=== PATIENT | female | born 1985 | race African-American/Black ===

== ENCOUNTER → 2016-10-17 | Outpatient (CLI) | payer OTHER ==
[~2016-10-17] MED LIST: ACET-2267 PO; BUTA1CAP39 PO; CEFD300C3 PO; CYCL10TA9 PO; IBUP-1780 PO; Ibuprofen PO; PNV1TABL56 PO
--- NOTE | 2016-10-17 13:29 | Diagnostic Imaging Report ---
INDICATION: survey. FINDINGS: Breech positioning of a yuen viable intrauterine gestation is present with unremarkable anatomical survey. The amniotic fluid volume within normal limits. Heart rate 149 beats per minute. The placenta is posterior with no abruption or previa. There is no pathological finding revealed at the anatomical survey. IMPRESSION: Normal anatomical survey. Yuen gestation in breech position measuring 21 weeks 3 days reflecting normal interval growth from prior. Dictated by: Dictated on workstation # [id number]
== END ==
LOC: RAD 10:57
PROVIDERS: ATTEND Family Medicine
DX: Z36 Encounter for antenatal screening of mother (principal); Z3A.21 21 weeks gestation of pregnancy
CPT/HCPCS: 76805

== ENCOUNTER 2017-02-20 02:41 | Inpatient (IN) | payer MEDICAID, OTHER ==
[~2017-02-20] VITALS: Ht 160 cm; Wt 73.0 kg
[2017-02-20] VITALS (12 sets, daily range): BP systolic 112–147; BP diastolic 56–70
[2017-02-20] MEDS ORDERED: D5 LR IV SOLUTION 1,000 ML IV ONE (02:55)
[2017-02-20] MEDS ORDERED: BUTORPHANOL INJ 2 MG/ML (STADOL) VIAL ONE (03:01)
[2017-02-20] MEDS ORDERED: MEPIVACAINE (CARBOCAINE) 2% 50 ML VIAL ONE (03:11)
[2017-02-20] MEDS ORDERED: D5 LR IV SOLUTION 1,000 ML IV SCH (03:18)
[2017-02-20] MEDS ORDERED: BUTORPHANOL INJ 2 MG/ML (STADOL) VIAL IV ONE ×2 (03:45→05:30)
[2017-02-20] MEDS ORDERED: OXYTOCIN/NORMAL SALINE 500 ML IV SCH (03:52)
--- NOTE | 2017-02-20 03:52 | History & Physical-OB ---
OB - Chief Complaint & HPI Date/Time Date of Admission: Date of Admission: 02/20/2017 Time Seen by Provider: 03:20 Chief Complaint/History OB-Reason for Admission/Chief: Onset of Labor Expected Date of Delivery: Feb 26, 2017 Gestational Age in Weeks: 39 Gestational Age in Days: 1 Admission Nurse Assessment Rev: Yes History of Labs GBS negative Allergies and Home Medications Allergies Coded Allergies: No Known Drug Allergies (Unverified , 01/20/10) Home Medications Acetaminophen 500 Mg Tablet, 500 MG PO Q6H, (Reported) Butalb/Acetaminophen/Caffeine 1 Each Capsule, 1 EACH PO Q6H PRN for HEADACHE, # 14 Ref 0 Prescribed by: CRYSTAL ALONSO on 03/18/16 1505 Ibuprofen 800 Mg Tablet, 800 MG PO Q8H PRN for PAIN, (Reported) OB - History Hx of Present Care: Yes Ultrasounds: Normal mid trimester US Obstetrical Complications: None Medical Complications: None Obstetrical History Hx Termination: No Hx Multiple Gestation: No Hx Stillbirth: No Hx Complication: No Hx Induced Hypertens: No Hx Maternal Gestational Diabet: No Delivery History Hx Dystocia: No Hx Large For Gestational Age I: No Hx Small for Gestational Age I: Yes Hx Section: No Hx Vaginal Delivery Post C-Sec: No Hx Blood Disorders: No (anemia) Adverse Rxn to Tranfusion: No Patient Past Medical History no chronic medical problems Social History/Family History Recent Infectious Disease Expo: No Alcohol Use: Denies Use Recreational Drug Use: No Immunizations Hepatitis A: No Hepatitis B: No Tetanus Booster (TDap): Less than 5yrs Date of Influenza Vaccine: May 11, 2014 OB - Admission Exam Physical Exam Date Seen by Provider: Feb 20, 2017 Time Seen by Provider: 03:20 HEENT: Moist Membranes Heart: Rhythm Normal Lungs: Clear Abdomen: Gravid Extremities: Normal Cervical Dilatation: 7cm (on presentation) Effacement: 100% Station: -1 Membranes: Intact Short Term Variability: Present Skilled Nursing Variability: Average (6-25) Intensity: Moderate OB - Assessment/Plan/Diagnosis Assessment Assessment: active labor (at 39 weeks) Plan Plan: Other (labor managment) VIN DACOSTA MD Feb 20, 2017 03:52
--- NOTE | 2017-02-20 03:57 | OB Labor & Delivery Record ---
L&D History Date of Service Date of Service: Feb 20, 2017 History Expected Date of Delivery: Feb 26, 2017 Gestational Age in Weeks: 39 Complications Events: Routine care Operative Indications (Cesarea: N/A-Vaginal Delivery Intrapartal Events: None L&D Stage1 Stage One Onset of Labor - Date: Feb 20, 2017 Onset of Labor - Time: 01:00 Monitors and Tracing Monitor Mode: External Monitor Accelerations: Uniform Monitor Decelerations: None Station: -1 Geography Faculty Member Variability: Average (6-10) Short Term Variability: Present Presentation: Vertex Signs of Distress by FHT Signs of Distress no Rupture of Membranes Spontaneous Ruture of Membrane: No Amniotic Membrane Fluid Desc.: Clear L&D Stage2 Stage Two Stage II Date: Feb 20, 2017 Stage II Time: 03:25 Monitors and Tracing Monitor Mode: External Monitor Accelerations: Uniform Monitor Decelerations: None Geography Faculty Member Variability: Average (6-10) Short Term Variability: Present Position: Left Occiput Anterior Presentation: Vertex Signs of Distress by FHT Signs of Distress no Cord Descript/Complications Cord Vessel Description: 3 Vessels Delivery Type Delivery Method: Spontaneous Vaginal Anterior Shoulder: Left Episiotomy/Perineal Laceration Laceraction(s)/Extensions: No Condition of Delivery 1 minute Comment: 9 5 minute Comment: 9 Condition of Infant Condition of Infant: Living Exam: No Observed Abnormalities Resuscitation Resuscitation: N/A - Spontaneous Resp L&D Stage3 Stage Three Stage III Date: Feb 20, 2017 Stage III Time: 03:30 Pictocin Pitocin ml/hr: 125 Placenta Delivery Placenta Delivery: Manual Delivery Summary Summary 200cc Condition of Delivery Examined: Cervix Examined Post Hemorrhage: No VIN DACOSTA MD Feb 20, 2017 03:57
[2017-02-20] MEDS ORDERED: TETANUS,DIPTH,PERTUSS P/F (BOOSTRIX) 0.5 ML VIAL IM ONE (04:00)
[2017-02-20] MEDS ORDERED: WITCH HAZEL(TUCKS) 40 EA JAR TOP PRN (04:00)
[2017-02-20] MEDS ORDERED: MEASLES,MUMPS,RUBELLA 1 EA INJ SQ ONE (04:00)
[2017-02-20] MEDS ORDERED: BENZOCAINE/MENTHOL (DERMOPLAST) 56 ML CAN TP PRN (04:00)
[2017-02-20] MEDS ORDERED: PREN-142 PO (04:18)
[2017-02-20 04:45] LABS: BASOPHILS % (AUTO) 0 % (0-10); EOSINOPHILS % (AUTO) 0 % (0-10); LYMPHOCYTES # (AUTO) 1.3 X 10^3 (1.0-4.0); LYMPHOCYTES % (AUTO) 13 % (12-44); MEAN CORPUSCULAR HEMOGLOBIN 20 PG (25-34); MEAN CORPUSCULAR HGB CONC 31 G/DL (32-36); MEAN CORPUSCULAR VOLUME 63 FL (80-99); MONOCYTES # (AUTO) 0.5 X 10^3 (0.0-1.0); MONOCYTES % (AUTO) 5 % (0-12); NEUTROPHILS # (AUTO) 7.7 X 10^3 (1.8-7.8); NEUTROPHILS % (AUTO) 82 % (42-75); PLATELET COUNT 146 10^3/uL (130-400); RED CELL DISTRIBUTION WIDTH 16.2 % (10.0-14.5); WHITE BLOOD COUNT 9.4 10^3/uL (4.3-11.0)
[2017-02-20] MEDS: IBUPROFEN 600 MG (MOTRIN) TAB PO SCH ×4 (05:09→22:57)
[2017-02-20] MEDS ORDERED: CATHETER FLUSH 10 ML SYR IV SCH ×2 (06:00)
[2017-02-20] MEDS: PRENATAL VITAMIN 1 EA TAB PO SCH (07:56)
[2017-02-20] MEDS: HYDROcodone/APAP 5 MG/325 MG (LORTAB) TAB PO PRN ×2 (07:58→20:57)
[2017-02-20] MEDS ORDERED: DOCUSATE SODIUM 100 MG (COLACE) CAP PO ONE (22:55)
[2017-02-21] MEDS: IBUPROFEN 600 MG (MOTRIN) TAB PO SCH (05:23)
[2017-02-21 05:30] VITALS: BP 142/78
[2017-02-21 06:44] LABS: BASOPHILS % (AUTO) 1 % (0-10); EOSINOPHILS # (AUTO) 0.2 10^3/uL (0.0-0.3); EOSINOPHILS % (AUTO) 2 % (0-10); LYMPHOCYTES # (AUTO) 3.2 X 10^3 (1.0-4.0); LYMPHOCYTES % (AUTO) 41 % (12-44); MEAN CORPUSCULAR HEMOGLOBIN 19 PG (25-34); MEAN CORPUSCULAR HGB CONC 31 G/DL (32-36); MEAN CORPUSCULAR VOLUME 63 FL (80-99); MONOCYTES # (AUTO) 0.4 X 10^3 (0.0-1.0); MONOCYTES % (AUTO) 6 % (0-12); NEUTROPHILS % (AUTO) 51 % (42-75); PLATELET COUNT 145 10^3/uL (130-400); RED BLOOD COUNT 3.61 10^6/uL (4.35-5.85); RED CELL DISTRIBUTION WIDTH 16.3 % (10.0-14.5); WHITE BLOOD COUNT 7.9 10^3/uL (4.3-11.0)
--- NOTE | 2017-02-21 07:48 | Discharge Summary ---
Diagnosis/Chief Complaint Date of Admission Feb 20, 2017 at 03:01 Date of Discharge February 21, 2017 Admission Diagnosis Admission Diagnosis 1. Intrauterine at term 39 weeks 2. Anemia due to iron deficiency Discharge Diagnosis 1. Intrauterine at term 39 weeks 2. Anemia due to iron deficiency Chief Complaint/HPI Chief Complaint/HPI 31-year-old 5 now term 5 female who initially presented in labor during the oracle adf developer of February 20, 2017. Upon presentation she was noted to be 7 cm dilated with a bulging membrane. Her EDC was listed as February 26, 2017. care was obtained through [facility] and was essentially unremarkable. Discharge Summary-OBS Procedures 1. Spontaneous vaginal delivery Discharge Physical Examination Allergies: Coded Allergies: No Known Drug Allergies (Unverified , 01/20/10) Vitals & I&Os Vital Sign - Last 12Hours Date Time Temp Pulse Resp B/P (MAP) Pulse Ox O2 Delivery O2 Flow Rate FiO2 02/21/17 05:30 97.6 53 18 142/78 Room Air 02/20/17 23:00 General Appearance: No Acute Distress HEENT: Mucous Memb Moist/[place] Respiratory: Clear to Auscultation Cardiovascular: Regular Rate Abdominal: Soft (with uterus firm) Hospital Course patient delivered a term viable female during the oracle adf developer of February 21, 2017 spontaneous vaginal. Mother had no episiotomy and there were no perineal tears. received Apgars of 8 at 1 minute and 9 at 5 minutes. See labor and delivery summary for full details. Following delivery patient underwent routine care orders. She was noted to have no complications during the remainder of hospital stay. Patient was ambulatory and had developed no leg pain or shortness of breath. Her hemoglobin day after delivery was noted to be 7.0 and this was compared to the 8.1 upon presentation. Patient was asymptomatic with regards to any dizziness. She was instructed to take her vitamin as well as iron outpatient. She will follow up in 6 weeks at [facility]. Labs Laboratory Tests 02/21/17 06:28: White Blood Count 7.9, Red Blood Count 3.61L, Hemoglobin 7.0L, Hematocrit 23L, Mean Corpuscular Volume 63L, Mean Corpuscular Hemoglobin 19L, Mean Corpuscular Hemoglobin Concent 31L, Red Cell Distribution Width 16.3H, Platelet Count 145, Mean Platelet Volume , Neutrophils (%) (Auto) 51, Lymphocytes (%) (Auto) 41, Monocytes (%) (Auto) 6, Eosinophils (%) (Auto) 2, Basophils (%) (Auto) 1, Neutrophils # (Auto) 4.0, Lymphocytes # (Auto) 3.2, Monocytes # (Auto) 0.4, Eosinophils # (Auto) 0.2, Basophils # (Auto) 0.0 Discharge Instructions to patient/family Please see electonic discharge instructions given to patient. Discharge Medications Reviewed and agree with Discharge Medication list on patient's Discharge Instruction sheet Clinical Quality Measures DVT/VTE Risk/Contraindication: Risk Factor Score Per Nursin RFS Level Per Nursing on Admit: 1=Low/No VTE PPX VIN DACOSTA MD Feb 21, 2017 07:48
[2017-02-21] MEDS ORDERED: FERR325C PO (07:50)
[2017-02-21] MEDS ORDERED: IBUP-1773 PO (07:50)
--- NOTE | 2017-02-21 07:51 | Discharge Inst-Women's Service ---
Discharge Inst-Women's Serv Depart Medication/Instructions New, Converted or Re-Newed RX: RX on Chart Consults/Follow Up Additional Follow Up: Yes (with Dr Dacosta at [facility] in 6 weeks) Diet Discharge Diet: Regular Diet Return to The Hospital For: as below Symptoms to Report to : Bleeding Excessive, Fever Over 101 Degrees F, Vaginal Bleeding Increase, Vaginal Discharge Foul For Any Problems or Questions: Contact Your Physician VIN DACOSTA MD Feb 21, 2017 07:51
[2017-02-21] MEDS ORDERED: DOCUSATE SODIUM 100 MG (COLACE) CAP PO SCH (09:00)
[2017-02-21 09:30] VITALS: BP 126/56
[2017-02-21] MEDS: PRENATAL VITAMIN 1 EA TAB PO SCH (09:33)
== END 2017-02-21 11:20 | disposition home or self-care (01) | DRG 775 ==
LOC: LDRP 02:41 → WSo 02:41 → LDRP 03:01
PROVIDERS: ADMIT Family Medicine; ATTEND Family Medicine
PROC: 10E0XZZ Delivery of Products of Conception, External Approach (ICD-10-PCS; principal; 2017-02-20)
DX: O99.03 Anemia complicating the puerperium (principal); D50.9 Iron deficiency anemia, unspecified; Z3A.39 39 weeks gestation of pregnancy; Z37.0 Single live birth
CPT/HCPCS: 36415; 85025; 86850; 86900; 86901; 99212

== ENCOUNTER 2017-05-07 14:00 | Outpatient (CLI) | payer MEDICAID ==
[~2017-05-07] VITALS: Ht 160 cm; Wt 65.3 kg
[~2017-05-07 14:00] MED LIST changes: +FERR325C PO; +IBUP-1773 PO; +PREN-142 PO
[2017-05-07 14:10] VITALS: BP 126/46
[2017-05-07 14:44] LABS: BASOPHILS # (AUTO) 0.1 10^3/uL (0.0-0.1); BASOPHILS % (AUTO) 2 % (0-10); EOSINOPHILS # (AUTO) 0.1 10^3/uL (0.0-0.3); EOSINOPHILS % (AUTO) 2 % (0-10); LYMPHOCYTES # (AUTO) 2.5 X 10^3 (1.0-4.0); LYMPHOCYTES % (AUTO) 63 % (12-44); MEAN CORPUSCULAR HEMOGLOBIN 20 PG (25-34); MEAN CORPUSCULAR HGB CONC 32 G/DL (32-36); MEAN CORPUSCULAR VOLUME 63 FL (80-99); MONOCYTES # (AUTO) 0.3 X 10^3 (0.0-1.0); MONOCYTES % (AUTO) 6 % (0-12); NEUTROPHILS # (AUTO) 1.1 X 10^3 (1.8-7.8); NEUTROPHILS % (AUTO) 28 % (42-75); PLATELET COUNT 151 10^3/uL (130-400); RED BLOOD COUNT 6.03 10^6/uL (4.35-5.85); RED CELL DISTRIBUTION WIDTH 24.4 % (10.0-14.5); WHITE BLOOD COUNT 4.1 10^3/uL (4.3-11.0)
[2017-05-09] MEDS ORDERED: IBUP-1780 PO (13:56)
[2017-05-09] MEDS ORDERED: OXYC-202 PO (13:56)
[2017-05-09] MEDS ORDERED: DOCU-143 PO (13:56)
== END 2017-05-07 14:30 | disposition home or self-care (01) ==
LOC: PREOP 14:00
PROVIDERS: ATTEND Obstetrics & Gynecology
DX: Z01.812 Encounter for preprocedural laboratory examination (principal); D25.9 Leiomyoma of uterus, unspecified; N81.4 Uterovaginal prolapse, unspecified
CPT/HCPCS: 36415; 84443; 84703; 85025; 86850; 86900; 86901; 87081

== ENCOUNTER 2017-05-09 12:00 | Day surgery (SDC) | payer MEDICAID ==
[~2017-05-09] VITALS: Ht 160 cm; Wt 65.3 kg
[2017-05-09] MEDS ORDERED: BUP/EPI 0.5% 1:200,000 (MARCAINE) 10ML VIAL IJ ONE (12:32)
[2017-05-09 12:36] VITALS: BP 106/47
[2017-05-09] MEDS: LACTATED RINGERS 1,000 ML IV SCH ×2 (12:45→14:40)
[2017-05-09] MEDS ORDERED: ONDANSETRON 4 MG/2 ML (SDV) Z0FRAN ONE ×2 (13:15→18:03)
[2017-05-09] MEDS ORDERED: MIDAZOLAM 2 MG/2 ML (VERSED) VIAL ONE (13:15)
[2017-05-09] MEDS ORDERED: DEXAMETHASONE 10 MG/ML (DECADRON) 1 ML VIAL ONE (13:15)
[2017-05-09] MEDS ORDERED: SEVOFLURANE (ULTANE) 15 ML INHAL SOLN ONE ×6 (13:15→15:22)
[2017-05-09] MEDS ORDERED: proPOfol 200 MG/20 ML (DIPRIVAN) VIAL IV ONE (13:15)
[2017-05-09] MEDS ORDERED: LIDOCAINE PF 2% 5 ML (XYLOCAINE) VIAL ONE (13:15)
[2017-05-09] MEDS ORDERED: fentaNYL INJECTION 100 MCG/2 ML AMP ONE (13:15)
[2017-05-09] MEDS ORDERED: ROCURONIUM 50 MG/5 ML (ZEMURON) VIAL IV ONE (13:15)
[2017-05-09] MEDS ORDERED: ceFAZolin 1 GM/NS 50 ML IVPB IV ONE ×2 (13:15)
--- NOTE | 2017-05-09 13:52 | Progress Note-Pre Operative ---
Pre-Operative Progress Note H&P Reviewed The H&P was reviewed, patient examined and no changes noted. Date Seen by Provider: May 09, 2017 Time Seen by Provider: 13:51 Date H&P Reviewed: May 09, 2017 Time H&P Reviewed: 13:52 Pre-Operative Diagnosis: uterine fibroids menorrhagia and uterine prolapse CONCHIS OH MD May 09, 2017 1:52 pm
[2017-05-09] MEDS ORDERED: D5 LR IV SOLUTION 1,000 ML IV SCH (13:53)
--- NOTE | 2017-05-09 13:53 | Progress Note-Post Operative ---
Post-Operative Progess Note Surgeon (s)/Welder Production Line Arc (s) Surgeon CONCHIS OH MD Welder Production Line Arc: Radha Alvarez Pre-Operative Diagnosis uterine fibroids menorrhagia and uterine prolapse Post-Operative Diagnosis same Procedure & Operative Findings Date of Procedure 05/09/17 Procedure Performed/Findings total laparoscopic hysterectomy with bilateral salpingectomies Anesthesia Type GETA Estimated Blood Loss Estimated blood loss (mL): 50cc Specimens/Packing Specimens Removed uterus and fallopian tubes Packing: none CONCHIS OH MD May 09, 2017 13:52
[2017-05-09] MEDS ORDERED: IBUP-1780 PO (13:56)
[2017-05-09] MEDS ORDERED: DOCU-143 PO (13:56)
[2017-05-09] MEDS ORDERED: OXYC-202 PO (13:56)
--- NOTE | 2017-05-09 13:59 | Discharge Instructions ---
Discharge Instructions Discharge Medications New, Converted or Re-Newed RX: RX on Chart Patient Instructions Patient Instructions: as directed Return to The Hospital For: as directed Activity & Diet Discharge Diet: No Restrictions Activity as Tolerated: No Orders-Post D/C & Referrals Follow Up Appt: return to clinic on Friday, May 12, 2017 at 930 a.m. for staple removal Call to make follow up appt. for patient in 4 weeks. Activity: Rest for 24 hours, than as tolerated. Wound Care: May remove Band-Aid tomorrow. Replace as desired. Keep incisions clean and dry. Wash daily with soap and water. Please call in RX to patient pharmacy. Diet: As tolerated-Clear Liquids only if nauseated. May shower or tub bathe as desired. No driving for 24 hours, no alcoholic beverages for 24 hours, and nothing per vagina (no tampons, douching, or intercourse) for 8 weeks. Patient to return to the clinic as soon as possible for: Temperature greater than 101F, Severe Pain, Foul discharge from incision or vagina, Excessive Bleeding (more than a period). CONCHIS OH MD May 09, 2017 1:59 pm
[2017-05-09] MEDS ORDERED: ONDANSETRON 4 MG/2 ML (SDV) Z0FRAN IVP PRN ×3 (14:00→15:45)
[2017-05-09] MEDS ORDERED: fentaNYL INJECTION 100 MCG/2 ML AMP IVP PRN (14:00)
[2017-05-09] MEDS: morphine INJ 10 MG/ML 1ML (SYR OR VIAL) IVP PRN ×2 (14:48→15:53)
[2017-05-09] MEDS: KETOROLAC 30 MG/ML VIAL IVP SCH ×2 (14:50→15:50)
[2017-05-09] MEDS ORDERED: MEPERIDINE (DEMEROL) INJ 50 MG/ML ONE (14:56)
[2017-05-09] MEDS ORDERED: GLYCOPYRROLATE 0.2 MG/ML (ROBINUL) 2 ML VIAL ONE (15:12)
[2017-05-09] MEDS ORDERED: NEOSTIGMINE (BLOXIVERZ ) 1 MG/1ML 10 ML VIAL ONE (15:12)
[2017-05-09] MEDS: HYDROmorphone (DILAUDID) 2 MG/ML VIAL IVP PRN ×2 (16:05→16:15)
[2017-05-09 16:55] VITALS: BP 122/83
[2017-05-09] MEDS ORDERED: ESTROGENS CONJ IV 25 MG/5 ML (PREMARIN) VIAL IV ONE (17:31)
[2017-05-09] MEDS ORDERED: WATER (STERILE) FOR INJ 10 ML BTL INJ ONE (17:31)
[2017-05-09] MEDS: oxyCODONE/APAP 10/325MG (PERCOCET 10) TABLET PO PRN ×2 (17:53→21:34)
[2017-05-09 19:40] VITALS: BP 133/72
--- OUTSIDE RECORDS SUMMARY | 2017-05-09 21:09 | XMS REPORT ---
Author Author VIN DACOSTA Organization [facility] Address [address] [place] [address] Care Team Providers Care Motor And Controls Tester Name Role Phone VIN DACOSTA Unavailable PROBLEMS Type Condition ICD9-CM Code [id number] Code Onset Dates Condition Status SNOMED Code Problem Migraine with aura and without status migrainosus, not intractable G43.109 Active 0006845 ALLERGIES No Known Allergies SOCIAL HISTORY No smoking Hx information available PLAN OF CARE Activity Details Follow Up 4 Weeks Reason: VITAL SIGNS Height 63 in 2016-08-14 Weight 149.8 lbs 2016-08-14 Temperature 97.7 degrees Fahrenheit 2016-08-14 Heart Rate 80 bpm 2016-08-14 Respiratory Rate 20 2016-08-14 BMI 26.536 kg/m2 2016-08-14 Blood pressure systolic 133 mmHg 2016-08-14 Blood pressure diastolic 82 mmHg 2016-08-14 MEDICATIONS Medication Instructions Dosage Frequency Start Date End Date Duration Status Zofran ODT 4 MG Orally every 8 hrs 1 tablet on the tongue and allow to dissolve 8h Jul, 30 day(s) Active Advantage Active RESULTS Name Result Date Reference Range UA OB DIP (IN HOUSE) 2016-08-14 Glucose Negative Protein Trace PROCEDURES Procedure Date Ordered Related Diagnosis Body Site URINE-NO MICRO Aug 14, 2016 Office Visit, Est Pt., Level 3 Aug 14, 2016 IMMUNIZATIONS No Known Immunizations
--- OUTSIDE RECORDS SUMMARY | 2017-05-09 21:09 | XMS REPORT ---
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, implant, and graft 996.76 Active 549193245 Problem Screening for malignant neoplasm of the cervix V76.2 Active 897378369 Problem Other general counseling and advice for contraceptive management V25.09 Active 611350015 Assessment Encounter for test Z32.00 06 Jun, 2016 Active 239840857 Problem Headache 784.0 Active 96805640 Problem Need for prophylactic vaccination and inoculation, Influenza V04.81 Active 755908757 Problem DTAP TEST V06.1 Active Problem Trichomonal vulvovaginitis 131.01 Active 14041094 Problem Supervision of other normal V22.1 Active 529685778 Problem Unspecified contraceptive management V25.9 Active 232182102 Problem Encounter for removal of intrauterine contraceptive device V25.12 Active 93124563 ALLERGIES Unknown Allergies SOCIAL HISTORY No smoking Hx information available PLAN OF CARE VITAL SIGNS MEDICATIONS Unknown Medications RESULTS No Results PROCEDURES Procedure Date Ordered Related Diagnosis Body Site URINE TEST Jul 02, 2016 IMMUNIZATIONS No Known Immunizations
--- OUTSIDE RECORDS SUMMARY | 2017-05-09 21:09 | XMS REPORT ---
Author Author VIN DACOSTA Organization [facility] Address [address] [place] [address] Care Team Providers Care Crystal Report Developer Name Role Phone VIN DACOSTA Unavailable PROBLEMS Type Condition ICD9-CM Code [id number] Code Onset Dates Condition Status SNOMED Code Problem Migraine with aura and without status migrainosus, not intractable G43.109 Active 6914202 ALLERGIES No Known Allergies SOCIAL HISTORY Never Assessed PLAN OF CARE Activity Details Follow Up 4 Weeks Reason: VITAL SIGNS Height 63 in 2016-09-11 Weight 147.8 lbs 2016-09-11 Temperature 97.3 degrees Fahrenheit 2016-09-11 Heart Rate 82 bpm 2016-09-11 Respiratory Rate 18 2016-09-11 BMI 26.182 kg/m2 2016-09-11 Blood pressure systolic 122 mmHg 2016-09-11 Blood pressure diastolic 70 mmHg 2016-09-11 MEDICATIONS Medication Instructions Dosage Frequency Start Date End Date Duration Status Promethazine HCl 25 MG Orally every 8 hours, PRN 1 tablet as needed Aug, Sep, 30 day(s) Active Advantage Active RESULTS Name Result Date Reference Range UA OB DIP (IN HOUSE) 2016-09-11 Glucose negative Protein negative PROCEDURES Procedure Date Ordered Result Body Site URINE-NO MICRO Sep 11, 2016 IMMUNIZATIONS No Known Immunizations MEDICAL (GENERAL) HISTORY Type Description Date Medical History Chronic Headaches Surgical History tonsillectomy Hospitalization History Child x4
--- OUTSIDE RECORDS SUMMARY | 2017-05-09 21:09 | XMS REPORT ---
Author Author VIN DACOSTA [facility] Address [address] [place] [address] Care Team Providers Care Distributed Generation Project Manager Name Role Phone VIN DACOSTA Unavailable PROBLEMS Type Condition ICD9-CM Code [id number] Code Onset Dates Condition Status SNOMED Code Problem Migraine with aura and without status migrainosus, not intractable G43.109 Active 0694256 ALLERGIES Unknown Allergies SOCIAL HISTORY No smoking Hx information available PLAN OF CARE VITAL SIGNS MEDICATIONS Unknown Medications RESULTS No Results PROCEDURES No Known procedures IMMUNIZATIONS No Known Immunizations
--- OUTSIDE RECORDS SUMMARY | 2017-05-09 21:09 | XMS REPORT ---
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, implant, and graft 996.76 Active 389360151 Problem Screening for malignant neoplasm of the cervix V76.2 Active 041239286 Problem Other general counseling and advice for contraceptive management V25.09 Active 684386908 Assessment Intractable migraine without aura and without status migrainosus G43.019 Feb, Active 721521063 Assessment Encounter to establish care Z76.89 Feb, Active 910205785 Problem Headache 784.0 Active 65643281 Problem Need for prophylactic vaccination and inoculation, Influenza V04.81 Active 349763405 Problem DTAP TEST V06.1 Active Problem Trichomonal vulvovaginitis 131.01 Active 28001728 Problem Supervision of other normal V22.1 Active 971388430 Problem Unspecified contraceptive management V25.9 Active 296349742 Problem Encounter for removal of intrauterine contraceptive device V25.12 Active 66423765 ALLERGIES Substance Reaction Event Type Date Status N.K.D.A. Unknown Non Drug Allergy Feb, Unknown SOCIAL HISTORY No smoking Hx information available PLAN OF CARE VITAL SIGNS Height 63 in 2016-03-19 Weight 157.0 lbs 2016-03-19 Heart Rate 76 bpm 2016-03-19 Respiratory Rate 20 2016-03-19 BMI 27.81 kg/m2 2016-03-19 Blood pressure systolic 128 mmHg 2016-03-19 Blood pressure diastolic 76 mmHg 2016-03-19 MEDICATIONS Medication Instructions Dosage Frequency Start Date End Date Duration Status Fioricet 50-325-40 mg 1-2 tablet by Oral route every 6 hours PRN not to exceed 6 tablets/day, 10/week May, Active Toprol XL 50 mg Orally Once a day 1 tablet 24h Feb, Active Ibuprofen 800 MG Orally Three times a day 1 tablet 8h Active RESULTS No Results PROCEDURES Procedure Date Ordered Related Diagnosis Body Site Office Visit, Est Pt., Level 4 Mar 19, 2016 IMMUNIZATIONS No Known Immunizations
--- OUTSIDE RECORDS SUMMARY | 2017-05-09 21:09 | XMS REPORT ---
Author Author VIN DACOSTA Organization [facility] Address [address] [place] [address] Care Team Providers Care Vice President For Philanthropy Name Role Phone VIN DACOSTA Unavailable PROBLEMS Type Condition ICD9-CM Code [id number] Code Onset Dates Condition Status SNOMED Code Problem Migraine with aura and without status migrainosus, not intractable G43.109 Active 3955150 ALLERGIES Substance Reaction Event Type Date Status N.K.D.A. Unknown Non Drug Allergy Jun, Unknown SOCIAL HISTORY No smoking Hx information available PLAN OF CARE Activity Details Follow Up 4 Weeks Reason: VITAL SIGNS Height 63 in 2016-07-17 Weight 157 lbs 2016-07-17 Temperature 98.6 degrees Fahrenheit 2016-07-17 Heart Rate 80 bpm 2016-07-17 Respiratory Rate 20 2016-07-17 BMI 27.811 kg/m2 2016-07-17 Blood pressure systolic 120 mmHg 2016-07-17 Blood pressure diastolic 78 mmHg 2016-07-17 MEDICATIONS Medication Instructions Dosage Frequency Start Date End Date Duration Status Advantage Active RESULTS Name Result Date Reference Range TSH () 2016-07-17 TSH 0.443 0.450-4.500 PAP TEST, HPV IF ASCUS 2016-07-17 DIAGNOSIS: Specimen adequacy: Performed by: . . Pathologist provided ICD10: Note: . CBC 2016-07-17 WBC 6.3 3.4-10.8 RBC 5.28 3.77-5.28 Hemoglobin 10.8 11.1-15.9 Hematocrit 34.6 34.0-46.6 MCV 66 79-97 MCH 20.5 26.6-33.0 MCHC 31.2 31.5-35.7 RDW 19.1 12.3-15.4 Platelets 184 150-379 Neutrophils 50 Lymphs 39 Monocytes 9 Eos 1 Basos 1 Neutrophils (Absolute) 3.2 1.4-7.0 Lymphs (Absolute) 2.5 0.7-3.1 Monocytes(Absolute) 0.6 0.1-0.9 Eos (Absolute) 0.1 0.0-0.4 Baso (Absolute) 0.1 0.0-0.2 Immature Granulocytes 0 Immature Grans (Abs) 0.0 0.0-0.1 ANTIBODY SCREEN 2016-07-17 Antibody Screen Negative Negative BLOOD TYPE/RH FACTOR 2016-07-17 ABO Grouping B Rh Factor Positive RUBELLA ANTIBODIES, IgG 2016-07-17 Rubella Antibodies, IgG 4.00 Immune >0.99 CULTURE, GENITAL 2016-07-17 Genital Culture, Routine Final report Result 1 CULTURE, URINE 2016-07-17 Urine Culture, Routine Final report Result 1 No growth TRICHOMONAS (IN HOUSE) 2016-07-17 TRICHOMONAS Negative Control + Lot # [id number] Exp date UA LONG DIP (IN HOUSE) 2016-07-17 Lot # [id number] Exp date Clarity Clear Color Yellow Odor None GLU Negative FLORA Negative KET Negative SG 1.020 BLO Negative pH 7.0 Protein Negative URO 0.2 NIT Negative ALONDRA Negative Lot # Exp date PDF Report 2016-07-17 PDF Report1 LCLS BACTERIAL VAGINOSIS (IN HOUSE) 2016-07-17 RESULTS Positive Control + Lot # [id number] Exp date SYPHILIS (STATE) 2016-07-17 HIV (STATE) 2016-07-17 HEP B SURFACE ANTIGEN (STATE) 2016-07-17 HEP B ANTIBODY HEP B ANTIBODY ([facility]) HEP B ANTIBODY ([facility]) GC/CHLAM PROBE ([facility]) 2016-07-17 CHLAMYDIA GC Ultrasound : OB, Early <14 WEEKS 2016-07-25 PROCEDURES Procedure Date Ordered Related Diagnosis Body Site BLOOD TYPING, ABO Jul 17, 2016 BLOOD TYPING, RH (D) Jul 17, 2016 CULTURE, BACTERIA, OTHER Jul 17, 2016 COMPLETE CBC W/AUTO DIFF WBC Jul 17, 2016 No Charge Jul 17, 2016 URINE CULTURE/COLONY COUNT Jul 17, 2016 RUBELLA ANTIBODY Jul 17, 2016 OLIVIA VAG, DNA, DIR PROBE Jul 17, 2016 TRICHOMONAS ASSAY W/OPTIC Jul 17, 2016 RBC ANTIBODY SCREEN Jul 17, 2016 Office Visit, Est Pt., Level 4 Jul 17, 2016 URINALYSIS, AUTO, W/O SCOPE Jul 17, 2016 ASSAY THYROID STIM HORMONE Jul 17, 2016 VENIPUNCT, ROUTINE* Jul 17, 2016 IMMUNIZATIONS No Known Immunizations
--- OUTSIDE RECORDS SUMMARY | 2017-05-09 21:10 | XMS REPORT ---
Author Author CHRISTINA GERMAN Organization [employer] Address Unknown Phone Unavailable Care Team Providers Care Shake Table Operator Name Role Phone CHRISTINA GERMAN CP Unavailable Allergies, Adverse Reactions, Alerts Substance Reaction Event Type N.K.D.A. 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, implant, and graft 996.76 Active Assessment Other headache syndrome G44.89 Active Problem DTAP TEST V06.1 Active Problem Unspecified contraceptive management V25.9 Active Problem Need for prophylactic vaccination and inoculation, Influenza V04.81 Active Problem Supervision of other normal V22.1 Active Problem Screening for malignant neoplasm of the cervix V76.2 Active Problem Encounter for removal of intrauterine contraceptive device V25.12 Active Problem Trichomonal vulvovaginitis 131.01 Active Medications No Known Medications Procedures Procedure Coding System Code Date TORADOL (IM) 60 MG/2ML (UP TO 15 MG) CPT-4 J1885 Mar 18, 2016 THER/PROPH/DIAG INJ, SC/IM CPT-4 84453 Mar 18, 2016 Office Visit, Est Pt., Level 3 CPT-4 98129 Mar 18, 2016 Vital Signs Date/Time: Mar 18, 2016 Cardiac Monitoring Heart Rate 80 bpm Weight 159.0 lbs Height 63 in BMI 28.16 Index Blood Pressure Diastolic 72 mmHg Blood Pressure Systolic 126 mmHg Results No Known Results Summary Purpose [employer] Submission
--- OUTSIDE RECORDS SUMMARY | 2017-05-09 21:10 | XMS REPORT ---
Author Author RENAE CINTRON [facility] Address [address] [place] [address] Care Team Providers Care Sales Training Representative Name Role Phone RENAE CINTRON Unavailable PROBLEMS Type Condition ICD9-CM Code SIF24-EA Code Onset Dates Condition Status SNOMED Code Problem Migraine with aura and without status migrainosus, not intractable G43.109 Active 8589803 ALLERGIES No Information SOCIAL HISTORY Never Assessed PLAN OF CARE VITAL SIGNS MEDICATIONS Unknown Medications RESULTS No Results PROCEDURES No Known procedures IMMUNIZATIONS No Known Immunizations MEDICAL (GENERAL) HISTORY Type Description Date Medical History Chronic Headaches Surgical History tonsillectomy Hospitalization History Child x4
[2017-05-09] MEDS ORDERED: KETOROLAC 30 MG/ML VIAL IVP SCH (22:00)
--- NOTE | 2017-05-10 07:40 | OPERATIVE REPORT ---
DATE OF SERVICE: 05/09/2017 PREOPERATIVE DIAGNOSES: 1. Uteromegaly/fibroids. 2. Menorrhagia. 3. Uterine prolapse. POSTOPERATIVE DIAGNOSES: 1. Uteromegaly/fibroids. 2. Menorrhagia. 3. Uterine prolapse. 4. Endometriosis. OPERATIVE PROCEDURE: Total laparoscopic gastric hysterectomy with bilateral salpingectomy and with destruction of endometriosis. OPERATIVE DESCRIPTION: With the patient in the supine position under satisfactory general anesthesia, she was repositioned in the dorsal lithotomy position in the [facility] and prepped and draped in the usual fashion for abdominal and vaginal surgery. Seo catheter was placed in the urinary bladder. A weighted speculum placed in the posterior fornix of the vagina and cervix exposed and grasped anteriorly with single tooth tenaculum. Uterus sounded to 13.5 cm with uterine sound. The cervix was then serially dilated with Jewel dilators to accommodate a Nany II manipulator, which was placed with a 6 x 8 cm uterine probe and a 35 mm colpotomy ring. Sutures of #1 Vicryl were placed at 3 and 9 o'clock positions of the cervix to affix the cervix to the manipulator. The patient brought in low dorsal lithotomy position and a 12 mm incision made 4 cm superior to the umbilicus, 8 mm incisions were made lateral to the umbilicus 9 cm on each side. All the incision/port sites were infiltrated with 0.5% Marcaine with epinephrine prior to incision. Veress needle was placed through the midline upper incision. Correct placement confirmed with a water drop test. The abdomen was insufflated with 2.4 liters of carbon dioxide. The Veress needle was removed and a 12 mm laparoscopic port placed. The laparoscope was introduced. The abdominal wall was transilluminated an 8 mm ports were placed in the lateral incisions. The patient was placed in Trendelenburg allowing the bowel to split up out of the pelvis. The manipulator was positioned and using a vessel sealer on the right and a bipolar fenestrated grasper on the left, I retired to the console using then the instruments noted. The pelvis was first examined. Both fallopian tubes were normal in appearance as were the ovaries. There were numerous fibroids, the largest being on the anterior lower uterine segment of the uterus. There were endometriosis implants in both ovarian fossae. Both ovaries had a follicular cyst, but none appeared abnormal. Both ureters were seen along the route down into the uterine vessels and were freely peristalsing. The laparoscope was rotated. The appendix was identified, it was a normal vermiform appendix. The decision was made to go ahead with the planned surgery. The right fallopian tube was grasped and elevated using the vessel sealer with the mesosalpinx was clamped, cauterized, and divided over to the side of the uterus. The uteroovarian pedicle was treated in that manner as was the round ligament, broad ligament, and the cardinal ligament. The same procedure performed on the left, allowing for constipation and both ovaries with removal of both fallopian tube was eventually with the uterus. The anterior lower uterine segment was now exposed the vessel sealer was replaced with a monopolar shear. The peritoneum on the anterior lower uterine segment was divided. The bladder was carefully dissected down off the lower uterine segment down onto the vagina exposing the vaginal wall at its connection with the cervix. A colpotomy incision was started at 11 o'clock position onto the colpotomy ring. That incision was continued circumferentially clockwise and counterclockwise until the entire colpotomy ring was exposed. The uterus with the fallopian tubes still attached was extracted through the vagina. There was some bleeding on the vaginal cuff, couple spots were cauterized to stem the bleeding until the cuff to be closed. The cuff was then closed using three sutures of V-Loc [place] sutures starting first on the right angle and securing that pedicle with the uterine vessels and then suspending the ovary from the stump of the round ligament on the right side, the same was performed on the left. This supported both ovaries above the pelvis nicely and secured the uterine vessels and secured the angle of the vagina. A third suture was used to close the midportion of the vaginal cuff. The peritoneum was brought back down on to the vaginal cuff with each of those sutures as they were used. The pelvis was irrigated and examined for hemostasis, which was complete. The endometriosis implants in the pelvis and both ovarian fossae and then the cul-de-sac were touched with electrocautery to destroy them. The pelvis was irrigated a final time. Hemostasis was complete, no remaining pathology was noted. Both ureters were seemed to peristalse freely. The procedure at this point was terminated. The patient was brought out of Trendelenburg after first, removing the operative instruments and undocking the manipulator. The ports were removed under direct vision. No bleeding noted. The abdomen was evacuated of the insufflating gas in the process of removing the ports. The skin incisions were closed with jose. The fascia at the supraumbilical incision was closed with [id number] suture of 2-0 Vicryl. The speculum was replaced in the vagina. The cervix was inspected. The vaginal cuff was closed completely and was completely hemostatic. The sponge and needle counts correct, hemostasis assured. ESTIMATED BLOOD LOSS: Around 50 mL and Seo catheter was left to dependent drainage, draining clear yellow urine and the procedure was terminated. The patient was awakened from her general anesthesia and transferred to recovery room in stable condition with plans for 22-hour observation. Job ID: [id number] DocumentID: [id number] Dictated Date: 05/09/2017 15:26:59 Communications Assistant Date: 05/10/2017 04:05:29 Dictated By: CONCHIS OH MD MTDD
[2017-05-10] MEDS ORDERED: DOCUSATE SODIUM 100 MG (COLACE) CAP PO SCH (09:00)
[2017-05-10] MEDS ORDERED: IBUPROFEN 800 MG (MOTRIN) TAB PO SCH (10:00)
== END 2017-05-09 21:40 | disposition home or self-care (01) ==
LOC: SDC 12:00 → WS 16:50 → SDC 21:40
PROVIDERS: ATTEND Obstetrics & Gynecology
DX: N92.0 Excessive and frequent menstruation with regular cycle (principal); N81.4 Uterovaginal prolapse, unspecified; N80.1 Endometriosis of ovary; N80.3 Endometriosis of pelvic peritoneum; N83.01 Follicular cyst of right ovary; N83.02 Follicular cyst of left ovary; N72 Inflammatory disease of cervix uteri; N80.0 Endometriosis of uterus; D25.1 Intramural leiomyoma of uterus